=== PATIENT | female | born 1975 | race Caucasian/White ===

== ENCOUNTER → 2016-06-28 | Outpatient (CLI) | payer BC, OTHER ==
[~2016-06-28] MED LIST: ALBU1AER9 PO; CETI10TA84 PO; DEXT5LIQ23 PO; DIPH25TA24 PO; IBUP-103 PO; PRED10TA PO
== END | disposition home or self-care (01) ==
LOC: C.LABSPEC 12:36
PROVIDERS: ATTEND Internal Medicine
DX: Z12.11 Encounter for screening for malignant neoplasm of colon (principal)

== ENCOUNTER → 2016-07-11 | Outpatient (CLI) | payer BC, OTHER ==
[2016-07-11 13:50] LABS: BASO % 0.4 %; BASO ABS # 0.02 K/uL (0-0.2); COMPLETE YES; EOS % 4.7 %; HEMATOCRIT 37.9 % (37-47); IG% 0.2 %; LYMPH ABS # 1.31 K/uL (1.2-3.4); MEAN CELL VOLUME 96.2 fL (80-100); MEAN CORPUSCULAR HGB CONC 32.2 g/dl (32-36); MEAN PLATELET VOLUME 12.3 fL (7.4-10.4); MONO % 8.4 %; NEUT % 57.3 %; PLATELET COUNT 163 K/uL (130-400); RED BLOOD COUNT 3.94 M/uL (4.2-5.4); WHITE BLOOD COUNT 4.51 K/uL (4.8-10.8)
[2016-07-11 14:03] LABS: ALB/GLOB RATIO 1.3 (0.9-2); ALKALINE PHOSPHATASE 53 U/L (45-117); ALT/SGPT 23 U/L (12-78); AST/SGOT 9 U/L (15-37); BLOOD UREA NITROGEN 14 mg/dl (7-18); BUN/CREATININE RATIO 21.2 (10-20); CALCIUM 8.5 mg/dl (8.5-10.1); CARBON DIOXIDE 27 mmol/L (21-32); CHLORIDE 107 mmol/L (98-107); CREATININE 0.67 mg/dl (0.60-1.20); GLUCOSE 77 mg/dl (70-99); HDL CHOLESTEROL 63 mg/dl; POTASSIUM 3.9 mmol/L (3.5-5.1); SODIUM 141 mmol/L (136-145)
[2016-07-11 14:15] LABS: CHOLESTEROL 153 mg/dl (0-200); CHOLESTEROL/HDL RATIO 2.4; TRIGLYCERIDES 55 mg/dl (0-150); VERY LOW DENSITY LIPOPROT CALC 11 mg/dl
== END | disposition home or self-care (01) ==
LOC: C.LABSPEC 12:06
PROVIDERS: ATTEND Internal Medicine
DX: D64.9 Anemia, unspecified (principal); R53.83 Other fatigue; E78.5 Hyperlipidemia, unspecified

== ENCOUNTER → 2016-07-21 | Outpatient (CLI) | payer OTHER ==
--- NOTE | 2016-07-23 08:21 | DIAGNOSTIC IMAGING REPORT ---
MRI OF THE BRAIN WITHOUT CONTRAST CLINICAL HISTORY: Dysphagia. Possible multiple sclerosis. COMPARISON STUDY: None. FINDINGS: Sagittal T1, proton density and axial T2, coronal FLAIR, and axial T1-weighted images were acquired. Axial diffusion-weighted sequence was also acquired. The patient was unable to tolerate additional sequences. There is marked facial artifact secondary to braces. No intra or extra-axial mass lesions are visualized The axial diffusion-weighted sequence was nondiagnostic due to magnetic field inhomogeneity, caused by the patient's braces.. There is no evidence of ventricular dilatation. Proton density T2-weighted and FLAIR images reveal no significant brachial signal abnormalities. There are no abnormal flow voids. IMPRESSION: Normal noncontrast MRI, limited by artifact due to the patient's braces. Electronically signed by: Darwin Garcia M.D. 07/23/2016 8:20 AM Dictated Date/Time: 07/23/2016 8:17 AM
== END | disposition home or self-care (01) ==
LOC: C.OPENMRI 10:36
DX: R13.10 Dysphagia, unspecified (principal)

== ENCOUNTER → 2017-06-29 | Outpatient (CLI) | payer OTHER | END | disposition home or self-care (01) | LOC: C.PAPS 08:20 | PROVIDERS: ATTEND Internal Medicine | DX: Z12.4 Encounter for screening for malignant neoplasm of cervix (principal) ==

== ENCOUNTER → 2017-07-06 | Outpatient (CLI) | payer OTHER ==
--- NOTE | 2017-07-06 08:25 | DIAGNOSTIC IMAGING REPORT ---
PELVIC COMPLETE NON OB CLINICAL HISTORY: PELVIC PAIN, MENSTRAL CHANGES PAIN COMPARISON STUDY: None FINDINGS: The uterus measured 8.6 cm. The endometrial stripe measured 7 mm. The right ovary measured 3.3 cm maximum dimension with normal vascular flow. The left ovary measured 2.7 cm maximum dimension with normal vascular flow. 1 cm left ovarian follicular cyst. There is no ultrasonographic evidence of ovarian torsion. It should be noted that ovarian torsion can be present with normal Doppler ultrasonographic findings. There was no evidence of pathologic free pelvic fluid. IMPRESSION: 1. 1 cm left ovarian follicular cyst. 2. Otherwise negative study. The above report was generated using voice recognition software. It may contain grammatical, syntax or spelling errors. Electronically signed by: Chai Guerrero M.D. 07/06/2017 8:24 AM Dictated Date/Time: 07/06/2017 8:22 AM
== END | disposition home or self-care (01) ==
LOC: C.ULTR 07:40
PROVIDERS: ATTEND Internal Medicine
DX: R10.2 Pelvic and perineal pain (principal); N92.6 Irregular menstruation, unspecified; N83.02 Follicular cyst of left ovary

== ENCOUNTER → 2017-07-17 | Outpatient (CLI) | payer OTHER ==
--- NOTE | 2017-07-17 15:04 | MAMMOGRAPHY REPORT ---
BILATERAL DIGITAL DIAGNOSTIC MAMMOGRAM TOMOSYNTHESIS WITH CAD AND TARGETED LEFT ULTRASOUND: 07/17/2017 CLINICAL HISTORY: The patient reports constant left breast pain for at least 2 years. She reports natividad mpiness in this region without a definite focal lump. TECHNIQUE: Breast tomosynthesis in addition to standard 2D mammography was performed. Current study was also evaluated with a Computer Aided Detection (CAD) system. Bilateral CC and MLO 2D and tomosyn thesis images were obtained. COMPARISON: Comparison is made to exams dated: 03/26/2016 mammogram, 01/16/2015 mammogram, and 07/29/19 15 mammogram. BREAST COMPOSITION: The tissue of both breasts is heterogeneously dense, which may obscure small mas ses. FINDINGS: There are no suspicious masses, calcifications, or areas of architectural distortion noted in either breast. There has been no significant interval change mammographically compared to prior e xams. A square marker richards the site of the left breast pain pointed out by the patient in the left lateral breast at approximately 2 to 3:00. Focal asymmetry in the left upper outer posterior breast is stable compared to prior exams. A few scattered benign-appearing calcifications are again noted. Targeted ultrasound was performed of the area of the left breast pain pointed out by the patient, in the left breast at 2:00 centered around 9-10 cm from the nipple. Sonographically normal tissue is se en in this region, without evidence of a suspicious mass or other suspicious sonographic abnormality. Incidentally noted in the left 230 breast, 9 cm from the nipple, is a round anechoic benign simple cyst measuring 2 mm. IMPRESSION: ACR BI-RADS CATEGORY 2: BENIGN, TARGETED ULTRASOUND ACR BI-RADS CATEGORY 2: BENIGN No suspicious mammographic or sonographic abnormality at the site of left breast pain pointed out by the patient. There is no mammographic or targeted sonographic evidence of malignancy. Recommend cl inical follow-up for left breast pain, and recommend routine bilateral screening mammograms in one ye ar. The patient has been verbally notified of the results. Approximately 10% of breast cancers are not detected with mammography. A negative mammographic report should not delay biopsy if a clinically suggestive mass is present. Reba Ellsworth M.D. /:07/17/2017 08:50:26 Foreign Clerk: Mariela Canales, [facility] letter sent: Normal 1/2 BI-RADS Code: ACR BI-RADS Category 2: Benign Ultrasound BI-RADS: ACR BI-RADS Category 2: Benign
== END | disposition home or self-care (01) ==
LOC: C.MAMM 08:23
PROVIDERS: ATTEND Internal Medicine
DX: N64.4 Mastodynia (principal)

== ENCOUNTER → 2017-07-20 | Outpatient (CLI) | payer OTHER | END | disposition home or self-care (01) | LOC: C.LABSPEC 12:50 | PROVIDERS: ATTEND Internal Medicine | DX: N39.0 Urinary tract infection, site not specified (principal) ==

== ENCOUNTER 2018-07-02 07:14 | Observation (INO) ==
--- NOTE | 2018-06-23 15:32 | Anesthesiology Consultation ---
Date of Service June 23, 2018 Assessment & Plan (1) Encounter for pre-operative examination: - Check test AM DOS Chart Review Chart Review: Acceptable Risk for Surgery and Patient seen in Pre Admission [facility] Teaching & Discussion Pre-Anesthesia Teaching/Discussion Notes: Instructed NPO after midnight before surgery,except medications with 15 cc of water. Medication instructions provided according to the PAT guidelines. History Surgery Operation Date: 07/02/18 07:30 Proposed Procedures p Robotic Total Laparoscopic Hysterectomy - Rere Tapia MD Height/Weight Height: 5 ft 4.5 in Weight: 58.6 kg Allergies Allergy/AdvReac Type Severity Reaction Status Date / Time No Known Allergies Allergy Verified 06/15/18 12:05 Medications Home Medications Medication Instructions Recorded Confirmed Last Taken albuterol sulfate [ProAir HFA] 2 puff INHALATION Q6H PRN 06/15/18 06/15/18 Unknown cholecalciferol (vitamin D3) 1,000 unit PO QAM 06/15/18 06/15/18 Unknown [Vitamin D3] diphenhydramine HCl [Benadryl] 12.5 mg PO HS PRN 06/15/18 06/15/18 Unknown fluticasone [Flonase Allergy 2 spray INTRANASAL QAM 06/15/18 06/15/18 Unknown Relief] ibuprofen 400 mg PO QID PRN 06/15/18 06/15/18 Unknown loratadine [Claritin] 10 mg PO DAILY PRN 06/15/18 06/15/18 Unknown Past Medical History Medical History Anxiety Cancer BCC S/P EXCISION Emphysema lung PER RECORDS; PATIENT DENIES SVT (supraventricular tachycardia) S/P ABLATION (2012) Past Surgical History Surgical History History of cardiac radiofrequency ablation 2012 2/2 SVT History of section X 2 History of tooth extraction WISDOM TEETH Past Anesthesia History Other Per patient, sensitive to meds. "Slow to wake" with WTE. History of PONV No Motion Sickness Screening History of Motion Sickness: Yes Social History Smoking Status: Never smoker Do You Dip or Chew Tobacco: No Hx Alcohol Use: No Hx Substance Use: No substance use type: does not use Exercise / Class Metabolic Activity III < 4 Walking/Shop/Light housework Review of Systems Patient denies chest pain, shortness of breath, dyspnea on exertion, joint pain, reflux, cough, wheezing. Occasional intermittent palpitations. Physical Exam Vital Signs VITALS BP 104/69 P 73 TEMP 98.1 SP02 18 RESP 99%RA PHYSICAL Full neck and c-spine range of motion. Full TMJ range of motion. TMD 2.5 finger breaths Mallampati Score 2 Dentition: intact Lungs: clear throughout to auscultation Cardiac: regular rate and rhythm, no murmurs noted Spine: normal Carotid arteries: negative bruit Extremities: no edema Small chin Testing Laboratory Results Blood Type A Positive 06/23/18 15:44 Antibody Screen NEGATIVE 06/23/18 15:44 05/04/18 WBC 5.14 H/H 12.1/38.2 PLATELETS 173 SODIUM 139 POTASSIUM 3.9 CHLORIDE 107 CO2 25 BUN 16 CREATININE 0.79 GLUCOSE 86
--- NOTE | 2018-06-23 15:45 | PAT Medication Instructions ---
Medication Instructions Date of Service June 23, 2018 Home Medications albuterol sulfate [ProAir HFA] 2 puff INHALATION Q6H PRN cholecalciferol (vitamin D3) 1,000 unit PO QAM diphenhydramine HCl [Benadryl] 12.5 mg PO HS PRN fluticasone [Flonase Allergy 2 spray INTRANASAL QAM ibuprofen 400 mg PO QID PRN loratadine [Claritin] 10 mg PO DAILY PRN ASK your surgeon for instructions ibuprofen 400 mg PO QID PRN DO NOT take the morning of surgery cholecalciferol (vitamin D3) 1,000 unit PO QAM loratadine [Claritin] 10 mg PO DAILY PRN Take morning of surgery With a small sip of water, OTHERWISE NOTHING TO EAT OR DRINK AFTER MIDNIGHT: albuterol sulfate [ProAir HFA] 2 puff INHALATION Q6H PRN (use if needed; please bring with you to hospital day of surgery if possible) fluticasone [Flonase Allergy 2 spray INTRANASAL QAM Take evening before surgery albuterol sulfate [ProAir HFA] 2 puff INHALATION Q6H PRN (if needed) diphenhydramine HCl [Benadryl] 12.5 mg PO HS PRN (if needed) loratadine [Claritin] 10 mg PO DAILY PRN (if needed) Other Notes If you have any questions please call us at [phone] or [phone] or [phone] or [phone]
[~2018-07-02 07:14] MED LIST changes: -ALBU1AER9 PO; +CEFAZOLIN 2000MG 2,000 MG/15 ML SYR IV SCH; -CETI10TA84 PO; -DEXT5LIQ23 PO; -DIPH25TA24 PO; -IBUP-103 PO; +LACTATED RINGER'S 1,000 ML IV SCH; +LR 15ML/HR IV SCH; -PRED10TA PO
[2018-07-02] MEDS ORDERED: ONDANSETRON INJ 2 MG/ML 2 ML VIAL IV PRN ×2 (07:33→11:17)
[2018-07-02] MEDS ORDERED: ePHEDrine sulfate 50 MG/ML AMP IV PRN (07:33)
[2018-07-02] MEDS ORDERED: PHENYLEPHRINE 100MCG/ML 5ML SYR IV PRN (07:33)
[2018-07-02] MEDS ORDERED: HYDROmorphone INJ 1 MG/ML SYRINGE IV PRN (07:33)
[2018-07-02] MEDS ORDERED: ATROPINE SULFATE 0.1 MG/ML 10ML SYR IV PRN (07:33)
[2018-07-02] MEDS ORDERED: KETOROLAC 30 MG/ML VIAL ONE (07:46)
[2018-07-02] MEDS ORDERED: fentaNYL citrate 100 MCG/2 ML VIAL ONE (07:47)
[2018-07-02] MEDS ORDERED: MIDAZOLAM HCL 1 MG/ML 2ML VIAL ONE (07:47)
[2018-07-02] MEDS ORDERED: ACETAMINOPHEN 1000 MG/100 ML IV IV ONE (07:59)
[2018-07-02] MEDS ORDERED: METHYLENE BLUE 0.5% 10 ML VIAL ONE (08:10)
--- NOTE | 2018-07-02 08:19 | History & Physical Bridge Note ---
Date of Service July 02, 2018 History & Physical Bridge Note I have examined the patient, reviewed the History & Physical and in the interval since the performance of the History & Physical I have noted the following changes of clinical significance: no changes noted
[2018-07-02] MEDS ORDERED: KETAMINE HCL INJ 50 MG/ML 10 ML VIAL ONE (08:47)
[2018-07-02] MEDS ORDERED: ONDANSETRON INJ 2 MG/ML 2 ML VIAL ONE ×2 (09:46→09:55)
[2018-07-02] MEDS ORDERED: DEXAMETHASONE SOD INJ 4 MG/ML VIAL ONE (09:46)
[2018-07-02] MEDS ORDERED: LIDOCAINE HCL 2% 2 ML VIAL/AMP(20MG/ML) INFIL ONE (09:46)
[2018-07-02] MEDS ORDERED: PROPOFOL IV EMULSION 10 MG/ML 20 ML VIAL IV ONE (09:46)
[2018-07-02] MEDS ORDERED: ROCURONIUM BROMIDE 10 MG/ML 5 ML VIAL ONE (09:46)
[2018-07-02] MEDS ORDERED: ePHEDrine sulfate 50 MG/ML SYR ONE (09:46)
--- NOTE | 2018-07-02 10:20 | Post Operative Brief Note ---
Immediate Post Op Note v1 Date of Surgery July 02, 2018 Pre & Post Diagnosis Operation Date: 07/02/18 08:50 Pre-Op Diagnosis: Menorrhagia with Irregular Cycle Post-Op Diagnosis: Menorrhagia with Irregular Cycle Procedure Operation Date: 07/02/18 08:50 Actual Procedures p Robotic-Assisted Laparoscopic Total Hysterectomy, Bilateral Salpingectomy and Cystoscopy(Not Applicable), Lysis of adhesions - Rere Tapia MD Surgeon Rere Tapia MD Full Time Babysitter Ranjeet Estimated Blood Loss 10 Findings Consistent with Post-Op Diagnosis Drains Webb Catheter
[2018-07-02] MEDS: fentaNYL citrate 100 MCG/2 ML VIAL IV PRN ×4 (11:09→12:02)
[2018-07-02] MEDS ORDERED: KETOROLAC 30 MG/ML VIAL IV PRN (11:17)
[2018-07-02] MEDS ORDERED: OXYCODONE/ACETAMINOPHEN 5mg/325mg TAB PO PRN ×2 (11:17)
[2018-07-02] MEDS ORDERED: ACETAMINOPHEN 325 MG TAB PO PRN (11:17)
[2018-07-02] MEDS ORDERED: IBUPROFEN 600 MG TAB PO PRN (11:17)
[2018-07-02] MEDS ORDERED: MEPERIDINE HCL 50 MG/ML CARP IV PRN (11:17)
[2018-07-02] MEDS ORDERED: SIMETHICONE 80 MG CHEW PO PRN (11:17)
[2018-07-02] MEDS ORDERED: MEPERIDINE HCL 25 MG/ML CARP IV PRN (11:17)
[2018-07-02] MEDS: PROMETHAZINE HCL 12.5 MG in SODIUM CHLORIDE 0.9% 50 ML IV PRN ×2 (11:18→11:45)
--- NOTE | 2018-07-02 12:21 | Anesthesiology Progress Note ---
Date of Service July 02, 2018 Anesthesia Post Procedure Vital Signs Vital Signs: Temp Pulse Pulse Pulse Resp BP BP 07/02/18 11:55 79 31 H 103/62 07/02/18 11:50 66 20 107/62 07/02/18 11:45 82 19 109/59 L 07/02/18 11:40 61 20 107/61 07/02/18 11:35 64 20 108/60 07/02/18 11:30 60 20 105/62 07/02/18 11:25 36.3 C L 60 65 16 113/63 113/63 07/02/18 11:20 64 20 98/59 L 07/02/18 11:15 79 19 102/61 07/02/18 11:10 88 29 H 107/64 07/02/18 11:05 74 21 113/64 07/02/18 11:00 95 H 15 117/68 07/02/18 10:55 89 15 108/63 07/02/18 10:50 87 18 115/71 07/02/18 10:45 96 H 21 115/67 07/02/18 10:40 36.1 C L 90 104 H 19 117/68 117/68 07/02/18 10:39 25 H 07/02/18 07:32 36.7 C 76 18 117/69 Pulse Ox 07/02/18 11:55 100 07/02/18 11:50 100 07/02/18 11:45 100 07/02/18 11:40 100 07/02/18 11:35 100 07/02/18 11:30 100 07/02/18 11:25 100 07/02/18 11:20 100 07/02/18 11:15 100 07/02/18 11:10 100 07/02/18 11:05 100 07/02/18 11:00 100 07/02/18 10:55 100 07/02/18 10:50 100 07/02/18 10:45 100 07/02/18 10:40 100 07/02/18 10:39 100 07/02/18 07:32 100 Pain Intensity Anterior Abdomen: Pain Intensity: 4 Notes Mental Status: alert / awake / arousable Patient Amnestic to Procedure: Yes Nausea / Vomiting: adequately controlled Pain: adequately controlled Airway Patency, RR, SpO2: stable & adequate BP & HR: stable & adequate Hydration State: stable & adequate Anesthetic Complications: no major complications apparent
--- NOTE | 2018-07-02 13:35 | Operative Report ---
DATE OF OPERATION: 07/02/2018 PREOPERATIVE DIAGNOSES: Menorrhagia, irregular cycle. POSTOPERATIVE DIAGNOSIS: Menorrhagia, irregular cycle. PROCEDURES: Robotic-assisted total laparoscopic hysterectomy, bilateral salpingectomy, lysis of adhesions and cystoscopy. SURGEON: Rere Tapia MD BALL WARPER TENDER: Cindy Pollack DO ESTIMATED BLOOD LOSS: 10 mL. FINDINGS: Consistent with postop. COMPLICATIONS: None. DISPOSITION: Stable to PACU. DESCRIPTION OF PROCEDURE: Milagros was placed on the table in the dorsal lithotomy position, prepped and draped in standard sterile fashion and a hard time-out was taken prior to proceeding. Webb and VCare uterine manipulator were placed. Attention was then turned to the abdomen where optical umbilical entry was made. The abdomen was insufflated and with the patient in steep Trendelenburg. Right and left lower quadrant ports were placed under direct visualization. Exam of the abdominal pelvic organs revealed significant adhesive disease with omental adhesions to the anterior abdominal wall broadly as well as a thick muscular adhesion from the anterior uterine wall to the anterior abdominal wall. Further adhesions involving the adnexa were present as well. We began systematically taking down the adhesions with the superior most omental adhesions lysing these carefully through clear tissue with minimal hot dissection until this was released completely from the anterior abdominal wall. Working downwards, further adhesions were released overlying the left infundibulopelvic ligament, the left ureter was visualized along its entire course. The appendix and liver edge were noted to be visible and normal, and then lysis of adhesions proceeded in the right adnexal fossa and that ureter was also identified along its course. The fallopian tubes were each gently elevated and dissected off the mesosalpinx. The uteroovarian ligaments were ligated bilaterally. The round ligament was ligated bilaterally and the uteroovarian and round ligaments were then divided. Creation of a bladder flap was done systematically and carefully by finding a plane between the anterior abdominal and uterine adhesion and gently opening this and carefully with a combination of blunt and sharp dissection, identifying and recreating the vesicovaginal space, ultimately mobilizing the bladder downwards to its normal anatomic position. Once this was done, the uterine arteries were ligated and divided bilaterally and colpotomy was then completed circumferentially. The cervix, uterus and bilateral tubes were then delivered through the vagina. The vaginal cuff was closed using V-Loc suture in a running nonlocked manner and at the completion of the repair, suction irrigation was used to examine all the working sites to ensure good hemostasis throughout. Once this was done, a cystoscopy proceeded with the aid of methylene blue dye. The entire bladder dome was examined and found to be free of any defect and both ureteral jets were seen to be strong and blue stained. Attention was then turned to abdominal closure. The trocars were removed. Gas was allowed to escape the abdomen. The umbilical fascia was reclosed with a running suture of UR-6 Vicryl. The skin sites were then closed using 4-0 Monocryl with a Dermabond dressing being applied. The patient was then transferred in stable condition to the recovery room. I attest to the content of the Intraoperative Record and any orders documented therein. Any exception s are noted below.
[2018-07-02 14:08] LABS: Hematocrit (blood only) 33.9 % (37-47); Hemoglobin 11.1 g/dL (12.0-16.0)
[2018-07-02 14:23] VITALS: O2SAT 100
[2018-07-02 17:21] VITALS: BP 104/65; PULSE 80; TEMP 99.7
[2018-07-02] MEDS ORDERED: COUGH DROP (SUGAR FREE) LOZ 24 LOZ/1 BOX BUCCAL ONE (18:19)
[2018-07-02] MEDS ORDERED: DOCUSATE SODIUM 100 MG CAP PO SCH (21:00)
--- NOTE | 2018-07-19 14:24 | Discharge Summary ---
Date of Service July 19, 2018 Discharge Data Procedures Performed Operation Date: 07/02/18 08:50 Actual Procedures p Robotic-Assisted Laparoscopic Total Hysterectomy, Bilateral Salpingectomy(Not Applicable) - Rere Tapia MD s Cystoscopy(Not Applicable) - Rere Tapia MD Hospital Course (1) Menometrorrhagia: Patient underwent an uncomplicated TLH, see operative report for details. she discharged home on POD#0 per usual and will follow up in office at 2 and 6 weeks .
== END 2018-07-02 20:20 | disposition home or self-care (01) ==
LOC: 4N 07:14 → ASU 07:14
DX: N92.1 Excessive and frequent menstruation with irregular cycle; Z87.891 Personal history of nicotine dependence